=== PATIENT | female | born 1940 | race Caucasian/White ===

== ENCOUNTER → 2016-04-04 | Outpatient (CLI) | payer MEDICARE, OTHER ==
[~2016-04-04] MED LIST: AMITRIPTYLINE H10 M2 PO; ANASPAZ0.125 M1 PO; CROMOLYN SODIUM10 ML OP; DITROPAN 5MG TAB5 MG PO; FOLIC ACID1 MG PO; MEGESTROL ACETA20 M1 PO; MIRALAX17 GM PO; OMEPRAZOLE PO; PROAIR HFA0.09 MG/AC IH; SIMVASTATIN20 M1 PO; [UNRECOGNIZED DRUG - OTHER] PO
== END ==
LOC: LAB 13:58
DX: E78.00 Pure hypercholesterolemia, unspecified (principal)

== ENCOUNTER → 2016-05-12 | Outpatient (CLI) | payer MEDICARE, OTHER ==
[2016-05-12 14:10] VITALS: BP 109/55
--- NOTE | 2016-05-12 15:46 | NUR ---
Pt arrives early afternoon for EKG, returned back to clinic to finish appointment with and EKG was read, labs drawn and after further assessment decided to send patient over for 1L NS bolus and to collect a urine sample, IV started, NS running, and will collect urine as soon as patient is able
[2016-05-12 15:51] VITALS: BP 157/61
--- NOTE | 2016-05-12 16:16 | NUR ---
UA COLLECTED AT THIS TIME.
--- NOTE | 2016-05-12 16:41 | NUR ---
AT BEDSIDE, STATES HE IS UP TO DATE ON HER VITAL SIGNS, NO NEED FOR A FURTHER NOTIFICATION, BUT ONCE HER URINE RESULTS IF THE GRAVITY IS <1.025 AND IT SHOWS NO FURTHER SIGNS OF INFECTION SHE IS SAFE TO DC HOME, CALL IF UA SHOWS SIGNS OF FURTHER INFECTION OR GRAVITY IS OUTSIDE OF PARAMETERS
--- NOTE | 2016-05-12 17:05 | NUR ---
URINE RESULTED AT THIS TIME, PARAMETERS SET BY CLEARED, WILL DC PATIENT HOME
[2016-05-12 17:12] VITALS: BP 152/75
== END ==
LOC: RAD 08:39 → AMSURD 13:31
DX: R55 Syncope and collapse (principal); R10.2 Pelvic and perineal pain
CPT/HCPCS: J7030

== ENCOUNTER → 2016-05-19 | Outpatient (CLI) | payer MEDICARE, OTHER | LOC: RAD 14:33 | DX: I73.9 Peripheral vascular disease, unspecified (principal); M48.06 Spinal stenosis, lumbar region ==

== ENCOUNTER → 2016-07-10 | Outpatient (CLI) | payer MEDICARE, OTHER ==
[2016-05-12 17:12] VITALS: BP 152/75
== END ==
LOC: LAB 14:09
DX: R73.9 Hyperglycemia, unspecified (principal); R53.83 Other fatigue; F41.9 Anxiety disorder, unspecified; R63.0 Anorexia; R63.6 Underweight; Z20.820 Contact with and (suspected) exposure to varicella

== ENCOUNTER → 2016-07-18 | Outpatient (CLI) | payer MEDICARE, OTHER ==
[2016-05-12 17:12] VITALS: BP 152/75
== END ==
LOC: LAB 14:23
DX: R79.89 Other specified abnormal findings of blood chemistry (principal)

== ENCOUNTER → 2016-08-05 | Outpatient (CLI) | payer MEDICARE, OTHER ==
[2016-05-12 17:12] VITALS: BP 152/75
== END ==
LOC: RAD 10:25
DX: M25.532 Pain in left wrist (principal); M79.632 Pain in left forearm

== ENCOUNTER 2017-02-10 15:14 | Emergency (ER) | payer MEDICARE, OTHER ==
[~2017-02-10] VITALS: Ht 152.4 cm; Wt 41.7 kg
[2017-02-10] MEDS ORDERED: PERPHEN-AMITRI1 EACH PO (15:51)
[2017-02-10] MEDS ORDERED: CITALOPRAM HBR10 MG PO (15:53)
[2017-02-10] MEDS ORDERED: VESICARE5 MG PO (16:02)
[2017-02-10] MEDS ORDERED: MIRALAX17 GM PO (16:03)
[2017-02-10] MEDS ORDERED: ZEGERID 20 MG-11 CAP PO (16:03)
[2017-02-10] MEDS ORDERED: PROAIR HFA0.09 MG/AC IH (16:04)
[2017-02-10] MEDS ORDERED: LEVSIN0.125 M2 PO (16:05)
[2017-02-10 16:22] LABS: EOS % 0.5 % (1.0-5.0); LYMPH# 1.4 (1.50-4.00); MEAN CELL VOLUME 85 fl (78-100); MEAN CORPUSCULAR HEMOGLOBIN 28 pg (27-31); MEAN CORPUSCULAR HGB CONC 32 g/dL (33-37); MEAN PLATELET VOLUME 10.9 fl (7.4-10.4); MONO # 0.4 (0.20-0.80); NEU # 5.9 (1.40-6.50); PLATELET COUNT 162 K/mm3 (130-400); RED BLOOD COUNT 4.35 M/mm3 (4.10-5.30); RED CELL DISTRIBUTION WIDTH 13.3 % (11.5-14.5); WHITE BLOOD COUNT 7.8 K/mm3 (4.8-10.8)
[2017-02-10 16:35] LABS: BUN/CREATININE RATIO 14.2 (6.0-26.0); CALCIUM 9.6 mg/dL (8.4-10.2); POTASSIUM 4.2 mmol/L (3.6-5.0); TOTAL BILIRUBIN 0.9 mg/dL (0.2-1.3); TOTAL PROTEIN 6.7 g/dL (6.3-8.2)
[2017-02-10 17:13] LABS: PH-URINE 6.5 (5.0 - 8.0); URINE APPEARANCE CLEAR; URINE BILIRUBIN NEGATIVE (NEGATIVE); URINE BLOOD NEGATIVE (NEGATIVE); URINE COLOR YELLOW; URINE GLUCOSE NEGATIVE (NEGATIVE); URINE KETONE NEGATIVE (NEGATIVE); URINE NITRATE NEGATIVE (NEGATIVE); URINE PROTEIN(semi-quant) TRACE mg/dL (NEGATIVE); URINE UROBILINOGEN NORMAL (NORMAL)
[2017-02-10 17:14] LABS: URINE LEUKOCYTE ESTERASE TRACE (NEGATIVE)
[2017-02-10] MEDS ORDERED: BENTYL 10MG10 MG/CAP PO (17:48)
[2017-02-10 18:00] VITALS: BP 159/71
== END 2017-02-10 17:59 | disposition home or self-care (01) ==
LOC: ED 15:14
PROVIDERS: Physician Assistant
DX: K58.1 Irritable bowel syndrome with constipation (principal); F41.9 Anxiety disorder, unspecified; F32.9 Major depressive disorder, single episode, unspecified; F17.210 Nicotine dependence, cigarettes, uncomplicated
CPT/HCPCS: J7030

== ENCOUNTER → 2017-03-27 | Outpatient (CLI) | payer MEDICARE, OTHER ==
[~2017-03-27] MED LIST changes: +BENTYL 10MG10 MG/CAP PO; +CITALOPRAM HBR10 MG PO; +LEVSIN0.125 M2 PO; +PERPHEN-AMITRI1 EACH PO; +VESICARE5 MG PO; +ZEGERID 20 MG-11 CAP PO
== END ==
LOC: LAB 15:23
DX: N39.498 Other specified urinary incontinence (principal); R30.0 Dysuria

== ENCOUNTER → 2017-04-03 | Outpatient (CLI) | payer MEDICARE, OTHER ==
[2017-04-03 16:22] LABS: URINE APPEARANCE CLOUDY; URINE BILIRUBIN NEGATIVE (NEGATIVE); URINE BLOOD TRACE (NEGATIVE); URINE COLOR LIGHT YELLOW; URINE GLUCOSE NEGATIVE (NEGATIVE); URINE KETONE NEGATIVE (NEGATIVE); URINE LEUKOCYTE ESTERASE TRACE (NEGATIVE); URINE NITRATE NEGATIVE (NEGATIVE); URINE PROTEIN(semi-quant) NEGATIVE (NEGATIVE); URINE UROBILINOGEN NORMAL (NORMAL)
== END ==
LOC: LAB 15:29
PROVIDERS: Family Medicine
DX: N39.0 Urinary tract infection, site not specified (principal)

== ENCOUNTER → 2017-05-04 | Outpatient (CLI) | payer MEDICARE, OTHER | LOC: RAD 14:56 | DX: M51.17 Intervertebral disc disorders with radiculopathy, lumbosacral region (principal) ==

== ENCOUNTER → 2017-06-15 | Outpatient (CLI) | payer MEDICARE, OTHER | LOC: RAD 12:00 | DX: M48.02 Spinal stenosis, cervical region (principal); M47.812 Spondylosis without myelopathy or radiculopathy, cervical region ==

== ENCOUNTER → 2017-07-21 | Outpatient (CLI) | payer MEDICARE, OTHER ==
[~2017-07-21] VITALS: Ht 152.4 cm; Wt 40.9 kg
[~2017-07-21] MED LIST changes: +BENTYL 20MG20 MG/TAB PO
[2017-07-21 09:19] LABS: BASO # 0.1 (0.02-0.10); EOS # 0.1 (0.04-0.40); EOS % 1.4 % (1.0-5.0); HEMATOCRIT 36.5 % (37.0-47.0); LYMPH# 2.2 (1.50-4.00); MEAN CELL VOLUME 85 fl (78-100); MEAN CORPUSCULAR HEMOGLOBIN 28 pg (27-31); MEAN CORPUSCULAR HGB CONC 33 g/dL (33-37); MEAN PLATELET VOLUME 11.7 fl (7.4-10.4); MONO # 0.5 (0.20-0.80); NEU # 2.6 (1.40-6.50); PLATELET COUNT 167 K/mm3 (130-400); RED BLOOD COUNT 4.32 M/mm3 (4.10-5.30); RED CELL DISTRIBUTION WIDTH 12.6 % (11.5-14.5); WHITE BLOOD COUNT 5.6 K/mm3 (4.8-10.8)
[2017-07-21 09:30] VITALS: BP 162/80
== END ==
LOC: AMSURD 08:58
PROVIDERS: Family Medicine
DX: M48.02 Spinal stenosis, cervical region (principal); R79.89 Other specified abnormal findings of blood chemistry; R53.83 Other fatigue

== ENCOUNTER → 2017-07-22 | Outpatient (CLI) | payer MEDICARE, OTHER ==
[2017-07-21 09:30] VITALS: BP 162/80
[2017-07-22 15:48] LABS: URINE APPEARANCE CLOUDY; URINE BILIRUBIN NEGATIVE (NEGATIVE); URINE BLOOD B (NEGATIVE); URINE COLOR YELLOW; URINE GLUCOSE NEGATIVE (NEGATIVE); URINE KETONE NEGATIVE (NEGATIVE); URINE LEUKOCYTE ESTERASE 1+ (NEGATIVE); URINE NITRATE POSITIVE (NEGATIVE); URINE PROTEIN(semi-quant) TRACE mg/dL (NEGATIVE); URINE UROBILINOGEN NORMAL (NORMAL)
[2017-07-22 18:19] LABS: BUN/CREATININE RATIO 9.4 (6.0-26.0); CALCIUM 9.7 mg/dL (8.4-10.2); TOTAL BILIRUBIN 0.5 mg/dL (0.2-1.3); TOTAL PROTEIN 7.1 g/dL (6.3-8.2)
[2017-07-22 18:24] LABS: POTASSIUM 3.7 mmol/L (3.6-5.0)
[2017-07-23 23:38] LABS: FOLATE (FOLIC ACID) 5.6 ng/mL (7.0-31.4)
== END ==
LOC: LAB 14:53
PROVIDERS: Family Medicine
DX: R32 Unspecified urinary incontinence (principal)

== ENCOUNTER → 2017-07-23 | Outpatient (CLI) | payer MEDICARE, OTHER ==
[2017-07-21 09:30] VITALS: BP 162/80
[~2017-07-23] MED LIST changes: +ZEGERID OTC PO
== END ==
LOC: RAD 11:00
DX: E04.2 Nontoxic multinodular goiter (principal); E07.89 Other specified disorders of thyroid

== ENCOUNTER 2017-08-07 12:41 | Emergency (ER) | payer MEDICARE, OTHER ==
[~2017-08-07] VITALS: Wt 41.0 kg
[~2017-08-07 12:41] MED LIST changes: -MIRALAX 255 GM255 GM PO; -ZEGERID OTC PO
[2017-08-07] MEDS ORDERED: ZEGERID OTC PO (13:08)
[2017-08-07 13:09] LABS: BASO # 0.1 (0.02-0.10); EOS # 0.2 (0.04-0.40); EOS % 3.2 % (1.0-5.0); HEMATOCRIT 35.3 % (37.0-47.0); HEMOGLOBIN 11.5 g/dL (12.5-16.0); LYMPH# 1.9 (1.50-4.00); MEAN CELL VOLUME 84 fl (78-100); MEAN CORPUSCULAR HEMOGLOBIN 27 pg (27-31); MEAN CORPUSCULAR HGB CONC 33 g/dL (33-37); MEAN PLATELET VOLUME 11.5 fl (7.4-10.4); MONO # 0.7 (0.20-0.80); PLATELET COUNT 148 K/mm3 (130-400); RED BLOOD COUNT 4.21 M/mm3 (4.10-5.30); RED CELL DISTRIBUTION WIDTH 13.1 % (11.5-14.5); WHITE BLOOD COUNT 6.8 K/mm3 (4.8-10.8)
[2017-08-07 13:23] LABS: ALBUMIN 3.7 g/dL (3.5-5.0); BUN/CREATININE RATIO 16.1 (6.0-26.0); CALCIUM 9.4 mg/dL (8.4-10.2); POTASSIUM 3.6 mmol/L (3.6-5.0); TOTAL BILIRUBIN 0.5 mg/dL (0.2-1.3); TOTAL PROTEIN 6.8 g/dL (6.3-8.2)
[2017-08-07 13:26] LABS: PARTIAL THROMBOPLASTIN TIME 21.6 SECONDS (21.0-32.0); PROTHROMBIN TIME 9.9 SECONDS (9.0-12.0)
[2017-08-07 13:27] LABS: CKMB ISOENZYME 0.9 ng/mL (0.6-3.5); D-DIMER 0.45 mg/L FEU (0.15-0.50)
[2017-08-07 13:31] LABS: TROPONIN-I < 0.03 ng/mL (0.00-0.06)
[2017-08-07 15:56] VITALS: BP 115/71
== END 2017-08-07 15:50 | disposition home or self-care (01) ==
LOC: ED 12:41
PROVIDERS: Physician Assistant
DX: R94.31 Abnormal electrocardiogram [ECG] [EKG] (principal); R42 Dizziness and giddiness; F17.200 Nicotine dependence, unspecified, uncomplicated

== ENCOUNTER → 2017-08-07 | Outpatient (CLI) | payer MEDICARE, OTHER ==
[2017-07-21 09:30] VITALS: BP 162/80
[~2017-08-07] MED LIST changes: +MIRALAX 255 GM255 GM PO
== END ==
LOC: CARDREHAB 11:25 → CARDLAB 15:43
DX: Z01.818 Encounter for other preprocedural examination (principal); R63.6 Underweight; D64.9 Anemia, unspecified; F17.200 Nicotine dependence, unspecified, uncomplicated; E78.5 Hyperlipidemia, unspecified
CPT/HCPCS: A9500

== ENCOUNTER 2017-08-14 10:48 | Emergency (ER) | payer MEDICARE, OTHER ==
[~2017-08-14] VITALS: Ht 152.4 cm; Wt 40.9 kg
[~2017-08-14 10:48] MED LIST changes: +ZEGERID OTC PO
[2017-08-14 11:25] LABS: URINE APPEARANCE CLEAR; URINE BILIRUBIN NN (NEGATIVE); URINE BLOOD 50 ery/uL (NEGATIVE); URINE COLOR YELLOW; URINE GLUCOSE NEGATIVE (NEGATIVE); URINE KETONE NEGATIVE (NEGATIVE); URINE LEUKOCYTE ESTERASE NEGATIVE (NEGATIVE); URINE NITRATE POSITIVE (NEGATIVE); URINE PROTEIN(semi-quant) NEGATIVE (NEGATIVE); URINE UROBILINOGEN NORMAL (NORMAL)
[2017-08-14] MEDS ORDERED: MIRALAX 255 GM255 GM PO (12:57)
[2017-08-14 13:10] VITALS: BP 163/83
== END 2017-08-14 13:06 | disposition home or self-care (01) ==
LOC: ED 10:48
PROVIDERS: Physician Assistant
DX: K59.00 Constipation, unspecified (principal); F17.200 Nicotine dependence, unspecified, uncomplicated

== ENCOUNTER 2017-11-27 20:11 | Emergency (ER) | payer MEDICARE, OTHER ==
[~2017-11-27] VITALS: Ht 152.4 cm; Wt 40.1 kg
[~2017-11-27 20:11] MED LIST changes: +MIRALAX 255 GM255 GM PO
[2017-11-27 21:11] LABS: HEMATOCRIT 37.3 % (37.0-47.0); HEMOGLOBIN 12.6 g/dL (12.5-16.0); MEAN CELL VOLUME 84 fl (78-100); MEAN CORPUSCULAR HEMOGLOBIN 29 pg (27-31); MEAN CORPUSCULAR HGB CONC 34 g/dL (33-37); MEAN PLATELET VOLUME 11.4 fl (7.4-10.4); PLATELET COUNT 137 K/mm3 (130-400); RED BLOOD COUNT 4.42 M/mm3 (4.10-5.30); RED CELL DISTRIBUTION WIDTH 12.7 % (11.5-14.5); WHITE BLOOD COUNT 9.9 K/mm3 (4.8-10.8)
[2017-11-27 21:20] LABS: CALCIUM 9.6 mg/dL (8.4-10.2); POTASSIUM 3.9 mmol/L (3.6-5.0)
[2017-11-27 21:26] LABS: BAND 3 % (0-10); LYMPHOCYTE 0 % (20-51); MONOCYTE 8 % (3-10); NEUTROPHILS 89 % (42-75)
[2017-11-27 22:20] VITALS: BP 138/91
== END 2017-11-27 22:20 | disposition home or self-care (01) ==
LOC: ED 20:11
PROVIDERS: Family Medicine
DX: R53.81 Other malaise (principal); D72.810 Lymphocytopenia; F41.9 Anxiety disorder, unspecified; R51 Headache; R05 Cough; R09.89 Other specified symptoms and signs involving the circulatory and respiratory systems; F17.200 Nicotine dependence, unspecified, uncomplicated; Z79.899 Other long term (current) drug therapy

== ENCOUNTER → 2018-09-02 | Outpatient (CLI) | payer MEDICARE, OTHER ==
[2018-09-02 17:12] LABS: HEMATOCRIT 37.2 % (37.0-47.0); HEMOGLOBIN 11.9 g/dL (12.5-16.0); MEAN PLATELET VOLUME 11.9 fl (7.4-10.4); RED BLOOD COUNT 4.32 M/mm3 (4.10-5.30); RED CELL DISTRIBUTION WIDTH 12.9 % (11.5-14.5); WHITE BLOOD COUNT 6.7 K/mm3 (4.8-10.8)
[2018-09-02 17:44] LABS: POTASSIUM 3.9 mmol/L (3.5-5.1)
[2018-09-02 17:47] LABS: TOTAL PROTEIN 6.9 g/dL (6.2-8.1)
[2018-09-02 17:49] LABS: TOTAL BILIRUBIN 0.6 mg/dL (0.2-1.2)
== END ==
LOC: LAB 15:59
PROVIDERS: Family Medicine
DX: Z00.00 Encounter for general adult medical examination without abnormal findings (principal); M48.061 Spinal stenosis, lumbar region without neurogenic claudication; G47.00 Insomnia, unspecified; N39.498 Other specified urinary incontinence; F41.8 Other specified anxiety disorders; M53.3 Sacrococcygeal disorders, not elsewhere classified; R63.6 Underweight; R09.89 Other specified symptoms and signs involving the circulatory and respiratory systems; Z72.0 Tobacco use

== ENCOUNTER 2019-02-08 10:08 | Observation (INO) | payer MEDICARE, OTHER ==
[~2019-02-08] VITALS: Ht 152.4 cm; Wt 35.5 kg
[2019-02-08 10:44] LABS: HEMATOCRIT 39.5 % (37.0-47.0); HEMOGLOBIN 12.9 g/dL (12.5-16.0); MEAN CELL VOLUME 84 fl (78-100); MEAN CORPUSCULAR HEMOGLOBIN 27 pg (27-31); MEAN CORPUSCULAR HGB CONC 33 g/dL (33-37); PLATELET COUNT 142 K/mm3 (130-400); RED BLOOD COUNT 4.71 M/mm3 (4.10-5.30); RED CELL DISTRIBUTION WIDTH 13.3 % (11.5-14.5); WHITE BLOOD COUNT 12.5 K/mm3 (4.8-10.8)
[2019-02-08 10:52] LABS: CALCIUM 10.2 mg/dL (8.3-10.5)
[2019-02-08 10:53] LABS: TOTAL PROTEIN 6.6 g/dL (6.2-8.1)
[2019-02-08 10:54] LABS: LYMPHOCYTE 6 % (20-51); MEAN PLATELET VOLUME 12.1 fl (7.4-10.4); MONOCYTE 6 % (3-10); NEUTROPHILS 87 % (42-75)
[2019-02-08 10:55] LABS: TOTAL BILIRUBIN 1.2 mg/dL (0.2-1.2)
[2019-02-08 11:52] LABS: URINE APPEARANCE CLEAR; URINE BILIRUBIN NEGATIVE (NEGATIVE); URINE BLOOD NEGATIVE (NEGATIVE); URINE COLOR YELLOW; URINE GLUCOSE NEGATIVE (NEGATIVE); URINE KETONE NEGATIVE (NEGATIVE); URINE LEUKOCYTE ESTERASE NEGATIVE (NEGATIVE); URINE NITRATE NEGATIVE (NEGATIVE); URINE PROTEIN(semi-quant) TRACE mg/dL (NEGATIVE); URINE UROBILINOGEN 1 mg/dL (NORMAL); URINE WBC 0-1 /hpf (0-3)
[2019-02-08] MEDS ORDERED: DESYREL50 MG PO (12:12)
[2019-02-08 12:13] VITALS: BP 144/60
[2019-02-08 12:35] VITALS: BP 146/50
[2019-02-08 15:30] VITALS: BP 141/55
[2019-02-08 16:18] VITALS: BP 138/61
[2019-02-08 18:49] VITALS: BP 143/65
[2019-02-08 23:57] VITALS: BP 150/64
[2019-02-09] VITALS (8 sets, daily range): BP systolic 129–197; BP diastolic 59–76
[2019-02-09 06:28] LABS: EOS % 0.6 % (1.0-5.0); HEMATOCRIT 30.1 % (37.0-47.0); HEMOGLOBIN 9.5 g/dL (12.5-16.0); LYMPH# 1.7 (1.50-4.00); MEAN CELL VOLUME 86 fl (78-100); MEAN CORPUSCULAR HEMOGLOBIN 27 pg (27-31); MEAN CORPUSCULAR HGB CONC 32 g/dL (33-37); MEAN PLATELET VOLUME 11.6 fl (7.4-10.4); MONO # 0.6 (0.20-0.80); NEU # 3.9 (1.40-6.50); PLATELET COUNT 120 K/mm3 (130-400); RED BLOOD COUNT 3.49 M/mm3 (4.10-5.30); RED CELL DISTRIBUTION WIDTH 13.3 % (11.5-14.5); WHITE BLOOD COUNT 6.3 K/mm3 (4.8-10.8)
[2019-02-09 06:38] LABS: CALCIUM 8.2 mg/dL (8.3-10.5)
[2019-02-09 06:43] LABS: POTASSIUM 2.9 mmol/L (3.5-5.1)
== END 2019-02-09 21:06 | disposition short-term general hospital (02) ==
LOC: ED 10:08 → MED/SURG 12:30
PROVIDERS: ADMIT Nurse Practitioner Primary Care
DX: I63.81 Other cerebral infarction due to occlusion or stenosis of small artery (principal); I10 Essential (primary) hypertension; R53.1 Weakness; R26.89 Other abnormalities of gait and mobility; G31.89 Other specified degenerative diseases of nervous system; G81.91 Hemiplegia, unspecified affecting right dominant side; F02.80 Dementia in other diseases classified elsewhere, unspecified severity, without behavioral disturbance, psychotic disturbance, mood disturbance, and anxiety; E87.6 Hypokalemia; I95.1 Orthostatic hypotension; E78.5 Hyperlipidemia, unspecified; M48.061 Spinal stenosis, lumbar region without neurogenic claudication; Z79.899 Other long term (current) drug therapy; Z23 Encounter for immunization; N28.9 Disorder of kidney and ureter, unspecified; Z91.14 Patient's other noncompliance with medication regimen
CPT/HCPCS: G0378; J1650; J2060; J2405; J3480; J7030

== ENCOUNTER → 2019-02-24 | Outpatient (CLI) | payer MEDICARE, OTHER ==
[2019-02-09 20:52] VITALS: BP 182/68
[~2019-02-24] MED LIST changes: +DESYREL50 MG PO
[2019-02-24 16:32] LABS: BASO # 0.1 (0.02-0.10); EOS # 0.1 (0.04-0.40); EOS % 0.6 % (1.0-5.0); HEMATOCRIT 33.5 % (37.0-47.0); HEMOGLOBIN 10.8 g/dL (12.5-16.0); LYMPH# 1.9 (1.50-4.00); MEAN CELL VOLUME 83 fl (78-100); MEAN CORPUSCULAR HEMOGLOBIN 27 pg (27-31); MEAN CORPUSCULAR HGB CONC 32 g/dL (33-37); MEAN PLATELET VOLUME 9.7 fl (7.4-10.4); MONO # 1.3 (0.20-0.80); PLATELET COUNT 266 K/mm3 (130-400); RED BLOOD COUNT 4.02 M/mm3 (4.10-5.30); RED CELL DISTRIBUTION WIDTH 13.1 % (11.5-14.5)
[2019-02-24 16:56] LABS: NEU # 10.7 (1.40-6.50)
[2019-02-24 17:45] LABS: ALBUMIN 3.2 g/dL (3.4-4.8)
[2019-02-24 17:47] LABS: CALCIUM 9.9 mg/dL (8.3-10.5)
[2019-02-24 17:48] LABS: TOTAL PROTEIN 6.8 g/dL (6.2-8.1)
[2019-02-24 17:50] LABS: TOTAL BILIRUBIN 0.4 mg/dL (0.2-1.2)
[2019-02-24 17:57] LABS: POTASSIUM 2.8 mmol/L (3.5-5.1)
== END ==
LOC: LAB 16:08
PROVIDERS: Family Medicine
DX: G30.8 Other Alzheimer's disease (principal); R63.0 Anorexia

== ENCOUNTER → 2019-02-25 | Outpatient (CLI) | payer MEDICARE, OTHER ==
[2019-02-09 20:52] VITALS: BP 182/68
[2019-02-25 16:13] LABS: PH-URINE 5.5 (5.0 - 8.0); URINE APPEARANCE HAZY; URINE COLOR YELLOW
[2019-02-25 16:14] LABS: URINE BILIRUBIN NEGATIVE (NEGATIVE); URINE BLOOD TRACE (NEGATIVE); URINE GLUCOSE NEGATIVE (NEGATIVE); URINE KETONE NEGATIVE (NEGATIVE); URINE LEUKOCYTE ESTERASE 2+ (NEGATIVE); URINE NITRATE POSITIVE (NEGATIVE); URINE PROTEIN(semi-quant) NEGATIVE (NEGATIVE); URINE UROBILINOGEN NORMAL (NORMAL); URINE WBC >50 /hpf (0-3)
== END ==
LOC: LAB 16:06
PROVIDERS: Family Medicine
DX: I69.398 Other sequelae of cerebral infarction (principal); G30.8 Other Alzheimer's disease; D72.829 Elevated white blood cell count, unspecified; R82.71 Bacteriuria

== ENCOUNTER 2019-03-03 09:29 | Emergency (ER) | payer MEDICARE, OTHER ==
[~2019-03-03] VITALS: Wt 36.1 kg
[2019-03-03 09:57] LABS: BASO # 0.1 (0.02-0.10); EOS # 0.3 (0.04-0.40); EOS % 2.4 % (1.0-5.0); HEMATOCRIT 30.5 % (37.0-47.0); HEMOGLOBIN 9.7 g/dL (12.5-16.0); LYMPH# 1.7 (1.50-4.00); MEAN CELL VOLUME 85 fl (78-100); MEAN CORPUSCULAR HEMOGLOBIN 27 pg (27-31); MEAN CORPUSCULAR HGB CONC 32 g/dL (33-37); MEAN PLATELET VOLUME 9.4 fl (7.4-10.4); NEU # 8.8 (1.40-6.50); PLATELET COUNT 237 K/mm3 (130-400); RED CELL DISTRIBUTION WIDTH 13.8 % (11.5-14.5); WHITE BLOOD COUNT 11.9 K/mm3 (4.8-10.8)
[2019-03-03 10:02] LABS: ALBUMIN 3.2 g/dL (3.4-4.8)
[2019-03-03 10:03] LABS: POTASSIUM 3.9 mmol/L (3.5-5.1)
[2019-03-03 10:04] LABS: CALCIUM 9.2 mg/dL (8.3-10.5)
[2019-03-03 10:05] LABS: TOTAL PROTEIN 6.6 g/dL (6.2-8.1)
[2019-03-03 10:07] LABS: TOTAL BILIRUBIN 0.5 mg/dL (0.2-1.2)
[2019-03-03 10:17] LABS: TROPONIN-I 0.03 ng/mL (<0.030)
[2019-03-03 11:59] LABS: URINE APPEARANCE CLEAR; URINE COLOR YELLOW
[2019-03-03 12:00] LABS: URINE BILIRUBIN NEGATIVE (NEGATIVE); URINE BLOOD NEGATIVE (NEGATIVE); URINE GLUCOSE NEGATIVE (NEGATIVE); URINE KETONE NEGATIVE (NEGATIVE); URINE LEUKOCYTE ESTERASE NEGATIVE (NEGATIVE); URINE MUCUS PRESENT (NOT PRESENT); URINE NITRATE NEGATIVE (NEGATIVE); URINE PROTEIN(semi-quant) TRACE mg/dL (NEGATIVE); URINE UROBILINOGEN NORMAL (NORMAL); URINE WBC 0-1 /hpf (0-3)
[2019-03-03 16:00] VITALS: BP 187/82
== END 2019-03-03 15:51 | disposition home or self-care (01) ==
LOC: ED 09:29
PROVIDERS: Nurse Practitioner Primary Care
DX: R91.8 Other nonspecific abnormal finding of lung field (principal); K21.9 Gastro-esophageal reflux disease without esophagitis; F03.90 Unspecified dementia, unspecified severity, without behavioral disturbance, psychotic disturbance, mood disturbance, and anxiety; F17.210 Nicotine dependence, cigarettes, uncomplicated; Z86.73 Personal history of transient ischemic attack (TIA), and cerebral infarction without residual deficits; Z87.01 Personal history of pneumonia (recurrent)

== ENCOUNTER 2019-04-11 17:18 | Observation (INO) | payer MEDICARE, OTHER ==
[~2019-04-11] VITALS: Ht 152.4 cm; Wt 32.2 kg
[2019-04-11] MEDS ORDERED: DOK COLACE100 MG PO (17:59)
[2019-04-11 18:00] VITALS: BP 126/58; BP 128/58
[2019-04-11] MEDS ORDERED: LIDOCAINE PAIN1 EACH TP (18:00)
[2019-04-11] MEDS ORDERED: MEGACE 40MG40 MG/TAB PO (18:00)
[2019-04-11 18:01] LABS: EOS % 0.4 % (1.0-5.0); HEMATOCRIT 33.1 % (37.0-47.0); HEMOGLOBIN 10.1 g/dL (12.5-16.0); LYMPH# 1.4 (1.50-4.00); MEAN CELL VOLUME 87 fl (78-100); MEAN CORPUSCULAR HEMOGLOBIN 26 pg (27-31); MEAN CORPUSCULAR HGB CONC 31 g/dL (33-37); MEAN PLATELET VOLUME 11.2 fl (7.4-10.4); MONO # 0.7 (0.20-0.80); NEU # 5.3 (1.40-6.50); PLATELET COUNT 216 K/mm3 (130-400); RED BLOOD COUNT 3.82 M/mm3 (4.10-5.30); RED CELL DISTRIBUTION WIDTH 15.2 % (11.5-14.5); WHITE BLOOD COUNT 7.4 K/mm3 (4.8-10.8)
[2019-04-11] MEDS ORDERED: NICOTINE7 MG/24 HR TD (18:01)
[2019-04-11] MEDS ORDERED: PRILOSEC 20MG20 MG PO (18:02)
[2019-04-11] MEDS ORDERED: TYLENOL 8 HOUR650 M1 PO (18:03)
[2019-04-11] MEDS ORDERED: LOPRESSOR 225 MG/TAB PO (18:03)
[2019-04-11] MEDS ORDERED: CHILDREN'S ASPI81 M1 PO (18:04)
[2019-04-11] MEDS ORDERED: ACETAMINOPHEN-H1 TA2 PO (18:04)
[2019-04-11] MEDS ORDERED: ONDANSETRON HYDR4 MG PO (18:04)
[2019-04-11] MEDS ORDERED: TIZANIDINE2 MG PO (18:04)
[2019-04-11] MEDS ORDERED: ATIVAN0.5 MG PO (18:05)
[2019-04-11] MEDS ORDERED: MIRTAZAPINE7.5 M1 PO (18:07)
[2019-04-11 18:10] LABS: POTASSIUM 3.2 mmol/L (3.5-5.1)
[2019-04-11 18:11] LABS: CALCIUM 9.3 mg/dL (8.3-10.5)
[2019-04-11 18:12] LABS: TOTAL PROTEIN 6.6 g/dL (6.2-8.1)
[2019-04-11 18:14] LABS: TOTAL BILIRUBIN 0.5 mg/dL (0.2-1.2)
--- NOTE | 2019-04-11 19:00 | NUR ---
Report provided by SHAAN Guardado.
--- NOTE | 2019-04-11 19:30 | NUR ---
Upon patient assessment, patient drowsy and alert and oriented x 3. Patient reports no pain. BLE and Bilateral ankles and lateral of feet show ecchymosis, purple. Bottom slightly reddened but blanchable. Patient states she is cold. Provided warm blankets and heat adjusted in room. Patient refused need to go to the restroom. Brief was dry.
--- NOTE | 2019-04-11 21:00 | NUR ---
Patient provided evening meds. Patient still drowsy but arousable. Patient provided bed bath, pericare and clothes changed for the evening.
[2019-04-11 22:00] VITALS: BP 139/66
--- NOTE | 2019-04-11 23:00 | NUR ---
Patient in pain at a 6/10 in back. Provided tylenol and heated K pad and heated blanket as patient states she is also still cold.
[2019-04-12] VITALS (7 sets, daily range): BP systolic 117–164; BP diastolic 56–77
--- NOTE | 2019-04-12 00:22 | NUR ---
PATIENT REPORTS PAIN IS WORSE AT A 7/10. SHE STATES, "THE HEATING PAD DOES NOT WORK." K-PAD CHECKED AND IT IS WORKING PROPERLY AND WARM BUT I WILL TALK TO THE PROVIDER SO TO GET HER PAIN UNDER CONTROL. PATIENT CONTINUES AND SAYS THAT SHE WANTS THE K-PAD TO BE "HOT." EDUCATED PATIENT THAT THE K-PAD IS TEMPERATURE CONTROLLED AND THERE ARE NO ELECTRICAL HEATING PADS AVAILABLE IN THE HOSPITAL FOR SAFETY. PATIENT VERY UPSET OVER THIS AND STATES SHE WILL "TALK TO DR. FUENTES ABOUT THIS" AND THAT "THE HOSPITAL NEEDS TO UPDATE THEIR EQUIPMENT." INFORMED PATIENT THAT WOULD BE BACK AFTER TALKING WITH THE PROVIDER. PROVIDER, Samson SIDDIQI APRN, ORDER FOR OXYCODONE 5MG Q6H, MAX 2 DOSES AND READ BACK. ONE TAB OF OXYCODONE 5MG PROVIDED TO PATIENT. PATIENT EDUCATED BUT REFUSED EDUCATION, SO NURSE LISTENED AND APOLOGIZED THAT THE K-PAD WAS NOT EFFECTIVE FOR HER PAIN. ENCOURAGED THAT THE ADDITIONAL PAIN MED SHOULD OFFER RELIEF.
--- NOTE | 2019-04-12 01:15 | NUR ---
Patient 1 person assist with walker to the bathroom. Patient weak, back curved over, and L leg drags a little as she ambulates. Gait uneven. 40mls of cloudy, light cheri urine. Small reddened area at saccrum with top layer of skin peeling and 1.1x1.3cm. Patient ambulated in room with walker to wheel chair. Patient wheeled around the hospital than patient tired and decided she was ready to go back to bed to sleep.
[2019-04-12 02:36] LABS: URINE APPEARANCE CLOUDY; URINE BILIRUBIN NEGATIVE (NEGATIVE); URINE BLOOD TRACE (NEGATIVE); URINE COLOR YELLOW; URINE GLUCOSE NEGATIVE (NEGATIVE); URINE KETONE NEGATIVE (NEGATIVE); URINE LEUKOCYTE ESTERASE 1+ (NEGATIVE); URINE NITRATE NEGATIVE (NEGATIVE); URINE PROTEIN(semi-quant) 2+ mg/dL (NEGATIVE); URINE UROBILINOGEN NORMAL (NORMAL)
--- NOTE | 2019-04-12 06:01 | NUR ---
Pill found in patient's covers that was have disentigrated. Patient's BP is high this as and has gradually increased overnight. To notify provider. TSH at 0.13. New order for synthroid. To confirm with provider. Provided 1000mg of acetaminophen last night for patient's pain. Pain not managed. Order for oxycodone 5mg provided and pain managed, patient slept. Patient history and last office visit with Dr. Lew show that patient's med list has [place] 5/325 q 6h for pain and tizanidine 2mg, 1 cap q 8h. To notify provider. Patient's urinalysis resulted in confirmed protein, bacteria and yeast. To notify provider.
--- NOTE | 2019-04-12 07:12 | NUR ---
Report and meds and labs provided to SHAAN Hurtado and SHAAN Guardado.
--- NOTE | 2019-04-12 08:13 | NUR ---
This RN assumed care this a.m.. Patient is resting quietly in room. When this RN attempted to encourage patient to wake for breakfast patient refused. Patient was pleasant with responces and allowed the RN to perform an assessment. Patient is alert and oriented to self, stated she was in the hospital, but believed it to be [facility]. Handgrips equal and bilateral lower extremities weak dorsal plantar flexion noted, right more than left. Hx of right hip fracture. Noted small sacral pressure wound. Bilateral lower extremities found to have eccymosis from knee to ankles, no hematomas. PUlses palpable in all extremities. Patient is mobile in bed and impulsive. Alarms in place, nonskid socks, and 1 assiste with ambulation and ADL's. Instructed patient on plan for the day and importance of nutrition and hydration for healing. Patient continued to refuse breakfast at this time.
--- NOTE | 2019-04-12 09:00 | NUR ---
This RN spoke with Tiara Stallworth APRN Reviewed Klonopin, Remeron order for BID. Stated she wanted to keep them as ordered. Reviewed order for Synthroid with current TSH of 0.13. Will discontinue this medication order. Reviewed Urine resultes, Bun 24 Cr 1.4, K3.2. No new orders related to this at this time. Tizanidine 2mg 1 tab PO PRN noted on home medication list, not started in hospital. No order to restart at this time.
[2019-04-12] MEDS ORDERED: CEFDINIR300 MG PO (14:37)
[2019-04-12] MEDS ORDERED: NICOTINE7 MG/24 HR TD (14:38)
[2019-04-12] MEDS ORDERED: TIZANIDINE2 MG PO (14:38)
[2019-04-12] MEDS ORDERED: SIMVASTATIN20 M1 PO (14:39)
[2019-04-12] MEDS ORDERED: LOPRESSOR 225 MG/TAB PO (14:39)
[2019-04-12] MEDS ORDERED: ACETAMINOPHEN-H1 TA2 PO (14:39)
[2019-04-12] MEDS ORDERED: CHILDREN'S ASPI81 M1 PO (14:39)
[2019-04-12] MEDS ORDERED: KLONOPIN 1MG1 MG PO (14:40)
[2019-04-12] MEDS ORDERED: TYLENOL 8 HOUR650 M1 PO (14:40)
[2019-04-12] MEDS ORDERED: MIRTAZAPINE7.5 M1 PO (14:40)
[2019-04-12] MEDS ORDERED: ONDANSETRON HYDR4 MG PO (14:41)
[2019-04-12] MEDS ORDERED: DOK COLACE100 MG PO (14:41)
[2019-04-12] MEDS ORDERED: PRILOSEC 20MG20 MG PO (14:41)
[2019-04-12] MEDS ORDERED: LIDOCAINE PAIN1 EACH TP (14:42)
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
--- NOTE | 2019-04-12 22:30 | NUR ---
BED ALARM SOUNDS, ENETER ROOM PT IS ATTEMPTING TO GET UP OUT OF THE RIGHT SIDE OF HER BED. WHEN ASKED WHAT PT NEEDED SHE STATES SHE WAS LOOKING FOR ELIO, WHEN ATTEMPTED TO REORIENTED PT TO SURROUNDINGS AND THAT THERE WAS NO ONE NAMED ELIO HERE. PT STATES "THERE HE IS STANDING IN THE CORNER" NO ONE WAS IS ROOM. PT WAS READJUSTED IN BED AND PT STATES SHE IS COMFORTABLE. BED ALARM RE SET FOR PT SAFETY.
[2019-04-13 01:57] VITALS: BP 149/66
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
[2019-04-13 05:29] VITALS: BP 166/72
--- NOTE | 2019-04-13 05:56 | NUR ---
PT IS GIVEN PAIN MEDS DUE TO LEFT HIP PAIN. PT HAS TO BE TOLD MORE THAN ONCE TO PUT THE PILL BACK IN HER MOUTH AND TO SWOLLOW IT. PT IS GIVEN A GALSS OF WATER, PTT PUTS CUP UP TO HER MOUTH AND REST HER FACE ON THE GALSS. PT HAS TO WOKE UP SEVERAL TIMES AND TOLD TO SWALLOW HER MEDICATION. PT STATES "I WANT A GLASS OF WATER INSTEAD OF A GLASS OF APLLE SAUCE." EXPLAINED TO PT THAT SHE HAD A GALSS OF WATER AND NOT A GLASS OF APPLE SAUCE. PT DOES SWALLOW MED. AND PT WATCHES THE WEATHER CHANNEL.
--- NOTE | 2019-04-13 06:41 | NUR ---
PT HERE OBSERVATION DUE TO CONCERNS OF HER HOME LIVING ENVIORNMENT. PT MAKES NO COMPLINTS CONCERNING HER DAUGHTER DURNG THIS SHIFT. PT COMPLINS OF PAIN AND WAS GIVEN PAIN MEDS WHEN PT IS ABLE TO HAVE THEM. THERE ARE TIMES DURING THE NIGHT THAT THE PT APPEARS TO BE CONFUSED AND REQUIRES REORIENTAION AT TIMES. PT GETS UP AND USES THE TOLIET X 1 DURING THE NIGHT. WILL CONTINUE TO MONIOTR THE PT.
[2019-04-13 09:02] LABS: EOS # 0.1 (0.04-0.40); EOS % 1.2 % (1.0-5.0); HEMATOCRIT 32.6 % (37.0-47.0); LYMPH# 2.5 (1.50-4.00); MEAN CELL VOLUME 88 fl (78-100); MEAN CORPUSCULAR HEMOGLOBIN 27 pg (27-31); MEAN CORPUSCULAR HGB CONC 31 g/dL (33-37); MEAN PLATELET VOLUME 11.5 fl (7.4-10.4); MONO # 0.6 (0.20-0.80); NEU # 3.4 (1.40-6.50); PLATELET COUNT 187 K/mm3 (130-400); RED CELL DISTRIBUTION WIDTH 15.4 % (11.5-14.5); WHITE BLOOD COUNT 6.5 K/mm3 (4.8-10.8)
[2019-04-13 09:03] LABS: ALBUMIN 3.4 g/dL (3.4-4.8); POTASSIUM 3.6 mmol/L (3.5-5.1)
[2019-04-13 09:04] LABS: CALCIUM 8.9 mg/dL (8.3-10.5)
[2019-04-13 09:05] LABS: TOTAL PROTEIN 5.7 g/dL (6.2-8.1)
[2019-04-13 09:07] LABS: TOTAL BILIRUBIN 0.5 mg/dL (0.2-1.2)
[2019-04-13 10:44] VITALS: BP 135/67
[2019-04-13 14:20] VITALS: BP 131/63
--- NOTE | 2019-04-13 17:00 | NUR ---
Patient discharged from observation and admitted swing bed.
[2019-04-13] MEDS ORDERED: ASPIRIN ADULT L81 M3 PO (17:33)
[2019-04-13] MEDS ORDERED: ZOFRAN ODT4 MG PO (17:34)
[2019-04-13] MEDS ORDERED: ZANAFLEX CAPSULE2 MG PO (17:36)
[2019-04-13] MEDS ORDERED: MIRTAZAPINE7.5 M1 PO (17:37)
[2019-04-13] MEDS ORDERED: LOPRESSOR 225 MG/TAB PO (17:38)
[2019-04-13] MEDS ORDERED: NORCO 325 MG-51 TA1 PO (17:39)
[2019-04-13] MEDS ORDERED: MEGESTROL ACETA20 M1 PO (17:39)
[2019-04-13] MEDS ORDERED: ATIVAN1 M1 PO (17:39)
[2019-04-13] MEDS ORDERED: COLACE100 M1 PO (17:41)
[2019-04-13] MEDS ORDERED: TYLENOL 325MG325 MG PO (17:43)
--- NOTE | 2019-04-13 17:52 | NUR ---
Spoke at length w/ pt's dtr, Lilly, who is currently in [place] and had just returned to her home there from being here to take care of her mother, being w/ her every day while she was at [facility], and then at [facility] and going back and forth moving furniture around and setting up her parents house in [place], so her sister, Zee could move in w/ her to take care of her parents. Lilly states, yes, Zee is an exhausted caregiver after being up for 3 days and nights w/ her mother who would not sleep because no one would help adjust her medications as she had repeatedly requested - she had requested Lorazepam 1 mg at HS vs 0.5 mg at HS. Lilly states that Zee has only been taking care of her mother for 1 week, she barely got back home. Lilly is informed that if Zee had only been taking care of her mother for 1 week, and is already exhausted and loses her temper so easily w/ her mother in a public place such as the Physician's office, she is not prepared to take care of someone w/ her mother's level of dementia, and that it is also not a good situation for her to be in as a recovered former narcotics addict who has previously spent 2 years in alf - for one, because of the level of anxiety it causes her and the constant demeaning attitude of her mother who is repeatedly telling everyone she can that Zee is not to be trusted because she used dope and spent 2 years in alf and is a habitual liar. Lilly states, well Zee just needs to learn to deal w/ it, and she is asked what does Zee get in return, to which she replied a warm place to live w/ a roof over her head. She states, eZe is very good for my Dad, and she needs some support or caregiver training to take care of Mom. Lilly is told that her mother is still making her own decisions, and she has repeatedly said, "I will not go home w/ Zee in my house". Lilly responded, "Then she will have to go to a fci". Lilly is told that this is what Dr Swanson is recommending, to which she replied, well you just do not understand, I have a lot of financial and legal arrangements to make before that can happen. Lilly is advised that pt is being admitted to [facility] because she failed going home w/ HH, her pain was not being controlled at home, she drags her leg w/ ambulation, she has had increased episodes of confusion at night and continues to need medication adjustment. Pt reports she fell at [facility] just prior to leaving facility, and Lilly has noted that she drags her leg since, then, but that an xray did not show anything. There is also a need for Zee to have caregiver training if pt is to ever return home. Lilly is in agreement w/ pt being re-admitted to [facility] w/ the option of going to [facility] to continue SNF LOC and transition into LTCF. She states that she had retrieved a [facility] application on line and she will work on this from her end. She will be down late on Thursday to continue to work on this situation. She also states that her sister did not dismiss [facility], she just asked them not to come one day. She states that when / if her mother returns home she is interested in [facility]'s mental health program. She will also look into [facility] as a possiblity of helping w/ her mother's medications and she is aware that [facility] has both a SNF and a Dementia Unit should her mother need this care and is agreeable to referral. Lilly states she has also looked for a Physician who specializes in Gerintology and had found a Dr Ortega at [facility] to whom she would like to transfer her mother's care, and this Physician has agreed to accept her as a pt when she is discharged. Clinical records are faxed to [facility]. Pt is discharged from OBS status to be re-admitted to [facility] as she is within her 30 day window after being discharged from [facility] on 04-03-19 and having failed going home, having repeated ED visits. Pt and Daughter Lilly are in agreement w/ [facility].
== END 2019-04-13 17:00 | disposition swing bed (61) ==
LOC: MED/SURG 17:18
PROVIDERS: Physician Assistant; ADMIT Nurse Practitioner Primary Care
DX: F03.91 Unspecified dementia, unspecified severity, with behavioral disturbance (principal); Z66 Do not resuscitate; R53.1 Weakness; Z91.81 History of falling; I25.2 Old myocardial infarction; I10 Essential (primary) hypertension; I25.10 Atherosclerotic heart disease of native coronary artery without angina pectoris; M48.00 Spinal stenosis, site unspecified; Z79.899 Other long term (current) drug therapy; G47.00 Insomnia, unspecified; F17.210 Nicotine dependence, cigarettes, uncomplicated
CPT/HCPCS: G0378; G0379; J1650

== ENCOUNTER 2019-04-13 17:00 | Inpatient (IN) | payer MEDICARE, OTHER ==
[~2019-04-13] VITALS: Ht 152.4 cm; Wt 33.1 kg
[~2019-04-13 17:00] MED LIST changes: +ACETAMINOPHEN-H1 TA2 PO; +ATIVAN0.5 MG PO; +CEFDINIR300 MG PO; +CHILDREN'S ASPI81 M1 PO; +DOK COLACE100 MG PO; +KLONOPIN 1MG1 MG PO; +LIDOCAINE PAIN1 EACH TP; +LOPRESSOR 225 MG/TAB PO; +MEGACE 40MG40 MG/TAB PO; +MIRTAZAPINE7.5 M1 PO; +NICOTINE7 MG/24 HR TD; +ONDANSETRON HYDR4 MG PO; +PRILOSEC 20MG20 MG PO; +TIZANIDINE2 MG PO; +TYLENOL 8 HOUR650 M1 PO
[2019-04-13] MEDS ORDERED: ASPIRIN ADULT L81 M3 PO (17:33)
[2019-04-13] MEDS ORDERED: ZOFRAN ODT4 MG PO (17:34)
[2019-04-13] MEDS ORDERED: ZANAFLEX CAPSULE2 MG PO (17:36)
[2019-04-13] MEDS ORDERED: MIRTAZAPINE7.5 M1 PO (17:37)
[2019-04-13] MEDS ORDERED: LOPRESSOR 225 MG/TAB PO (17:38)
[2019-04-13 17:39] VITALS: BP 134/66
[2019-04-13] MEDS ORDERED: MEGESTROL ACETA20 M1 PO (17:39)
[2019-04-13] MEDS ORDERED: NORCO 325 MG-51 TA1 PO (17:39)
[2019-04-13] MEDS ORDERED: ATIVAN1 M1 PO (17:39)
[2019-04-13] MEDS ORDERED: COLACE100 M1 PO (17:41)
[2019-04-13 17:43] VITALS: BP 134/66
[2019-04-13] MEDS ORDERED: TYLENOL 325MG325 MG PO (17:43)
[2019-04-14 06:00] VITALS: BP 153/76; BP 161/70
[2019-04-14 17:39] VITALS: BP 131/67
[2019-04-15 06:03] VITALS: BP 159/71
[2019-04-15 18:13] VITALS: BP 147/72
[2019-04-16 06:25] VITALS: BP 176/79
[2019-04-16 17:39] VITALS: BP 158/85
[2019-04-17 06:53] VITALS: BP 157/69
[2019-04-17 17:18] VITALS: BP 145/73
[2019-04-18 06:38] VITALS: BP 156/63
[2019-04-18] MEDS ORDERED: SIMVASTATIN20 M1 PO (09:45)
[2019-04-18] MEDS ORDERED: LOPRESSOR 225 MG/TAB PO (09:45)
[2019-04-18] MEDS ORDERED: NICOTINE7 MG/24 HR TD (09:45)
[2019-04-18] MEDS ORDERED: ZANAFLEX CAPSULE2 MG PO (09:45)
[2019-04-18] MEDS ORDERED: ASPIRIN ADULT L81 M3 PO (09:46)
[2019-04-18] MEDS ORDERED: MIRTAZAPINE7.5 M1 PO (09:46)
[2019-04-18] MEDS ORDERED: NORCO 325 MG-51 TA1 PO (09:46)
[2019-04-18] MEDS ORDERED: ATIVAN 2MG2 MG PO (09:47)
[2019-04-18] MEDS ORDERED: ATIVAN0.5 MG PO ×2 (09:47→10:42)
[2019-04-18] MEDS ORDERED: COLACE100 M1 PO (09:48)
[2019-04-18] MEDS ORDERED: HEALTHYLAX17 GM/Dose PO (09:48)
[2019-04-18] MEDS ORDERED: LIDOCAINE PAIN1 EACH TP (09:48)
[2019-04-18] MEDS ORDERED: PRILOSEC 20MG20 MG PO (09:48)
== END 2019-04-18 10:58 | disposition home health service (06) | DRG 948 ==
LOC: MED/SURG 17:00
PROVIDERS: ADMIT Physician Assistant
DX: R53.81 Other malaise (principal); N39.0 Urinary tract infection, site not specified; E05.90 Thyrotoxicosis, unspecified without thyrotoxic crisis or storm; I25.10 Atherosclerotic heart disease of native coronary artery without angina pectoris; E78.5 Hyperlipidemia, unspecified; F03.90 Unspecified dementia, unspecified severity, without behavioral disturbance, psychotic disturbance, mood disturbance, and anxiety; K21.9 Gastro-esophageal reflux disease without esophagitis; F32.9 Major depressive disorder, single episode, unspecified; M19.90 Unspecified osteoarthritis, unspecified site; G47.00 Insomnia, unspecified; K59.00 Constipation, unspecified; N28.9 Disorder of kidney and ureter, unspecified; Z86.73 Personal history of transient ischemic attack (TIA), and cerebral infarction without residual deficits; I25.2 Old myocardial infarction; Z79.82 Long term (current) use of aspirin
CPT/HCPCS: J1650